=== PATIENT | female | born 1995 | race Caucasian/White ===

== ENCOUNTER 2016-10-18 11:25 | Emergency (ER) | payer OTHER ==
[~2016-10-18] VITALS: Ht 175.3 cm; Wt 82.0 kg
[2016-10-18 11:45] VITALS: TEMP 36.9; Ht 175.3 cm; Wt 82.0 kg
--- NOTE | 2016-10-18 13:03 | DIAGNOSTIC IMAGING REPORT ---
LUMBAR SPINE 5 VIEWS CLINICAL HISTORY: Low back pain. Sciatica. FINDINGS: 5 views of the lumbar spine are obtained. No prior studies are available for comparison at the time of dictation. The skeletal structures are well mineralized. There is no radiographic evidence of fracture or malalignment. Vertebral body height and alignment are maintained. The transverse and spinous processes are intact. There is no evidence of spondylolysis. The intervertebral disc spaces are well-maintained. The visualized bony pelvis appears intact. There is a nonobstructed abdominal bowel gas pattern. An intrauterine device is noted in the pelvis. IMPRESSION: Unremarkable radiographic evaluation of the lumbosacral spine. Electronically signed by: Mateo Witt M.D. 10/18/2016 12:42 PM Dictated Date/Time: 10/18/2016 12:41 PM
[2016-10-18] MEDS ORDERED: TRAM-10 PO (13:32)
[2016-10-18] MEDS ORDERED: CYCL10TA6 PO (13:32)
[2016-10-18 13:43] VITALS: BP 147/89; PULSE 61; O2SAT 98
--- NOTE | 2016-10-18 15:11 | EMERGENCY ROOM VISIT NOTE ---
History First contact with patient: 12:02 Chief Complaint: BACK PAIN Stated Complaint: BACK LOCKED UP/LOTS OF PAIN IN LWR BACK History of Present Illness The patient is a 20 year old female who presents to the Emergency Room with complaints of lower back pain. 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 The patient has had persistent pain since that time. The patient denies any twisting motion when she bent over. The patient reports that she has had chronic lower back pain since earlier in the summer. The patient was at a summer camp in [place] when she initially developed the pain. She denies any history of trauma at that time. The patient reports that a prostate 3 weeks after her initial injury is when she started to notice more frequent pain that would radiate into the left lateral thigh region. The pain never radiated below the left knee. The patient has not noticed any lower extremity weakness, foot drop, saddle anesthesias or bladder/bowel difficulties/incontinence. The patient did seek evaluation at an urgent care center in [place], it is had no further follow-up for her back pain. The patient reports that she did take some ibuprofen this morning that helped with the pain, and currently rates her discomfort a 5 out of 10 on my exam. She rated her pain a 10 out of 10 in triage. Review of Systems 10 system review was performed and was negative except for pertinent positives and negatives as indicated in history of present illness Past Medical/Surgical History Medical Problems: (1) Migraines Surgical Problems: (1) No history of previous surgery Family History No significant family history Social History Smoking Status: Never Smoker Alcohol Use: none Marital Status: single Housing Status: lives with roommate Occupation Status: [employer] Current/Historical Medications Scheduled PRN Cyclobenzaprine Hcl (Flexeril), 10 MG PO TID PRN for spasm Tramadol (Ultram), 1 TAB PO Q4H PRN for Pain Physical Exam Vital Signs Date Time Temp Pulse Resp B/P (MAP) Pulse Ox O2 Delivery O2 Flow Rate FiO2 10/18/16 13:43 61 147/89 98 10/18/16 11:45 36.9 98 16 145/85 99 Physical Exam CONSTITUTIONAL: Healthy and well nourished. Alert and oriented X 3 with positive affect. Patient appears in mild discomfort on my exam. HEENT: Normocephalic, atraumatic. Pupils equal, round and reactive. NECK: Full active range of motion without discomfort. GASTROINTESTINAL: Bowel sounds present in all quadrants. Soft and nontender to palpation. Negative CVA tenderness. MUSCULOSKELETAL: Examination shows mild tenderness to palpation through the left SI joint and sciatic notch. Negative logroll. Negative straight leg raise. No lateral pelvic or thigh tenderness to palpation. Pedal pulses are intact. Ankle plantar/dorsiflexion strength is 5 out of 5 and symmetric bilaterally. INTEGUMENTARY: No rash or other significant dermatologic conditions noted. NEUROLOGIC: Lower extremities are sensory intact with deep tendon reflexes 2+ and symmetric bilaterally. Medical Decision & Procedures ER Provider Diagnostic Interpretation: My interpretation of lumbar spine x-rays does not show any acute fractures, spondylolisthesis, subluxations or lordotic reversal. Radiologist report is as follows: LUMBAR SPINE 5 VIEWS CLINICAL HISTORY: Low back pain. Sciatica. FINDINGS: 5 views of the lumbar spine are obtained. No prior studies are available for comparison at the time of dictation. The skeletal structures are well mineralized. There is no radiographic evidence of fracture or malalignment. Vertebral body height and alignment are maintained. The transverse and spinous processes are intact. There is no evidence of spondylolysis. The intervertebral disc spaces are well-maintained. The visualized bony pelvis appears intact. There is a nonobstructed abdominal bowel gas pattern. An intrauterine device is noted in the pelvis. IMPRESSION: Unremarkable radiographic evaluation of the lumbosacral spine. ED Course Patient history and physical exam were performed. Nurse's notes were reviewed. Vital signs were reviewed and normal. The patient refused any analgesics on initial exam. X-rays of the lumbar spine were normal. At this point, it was suggested that the patient follow up with [facility] or [facility] for further reevaluation. The patient was provided prescriptions for Flexeril and Ultram, with instructions on when to use each medication. She was encouraged to alternate ibuprofen and Tylenol for baseline pain relief. She was also given specific instructions for symptoms to watch for and immediate return to the emergency department. The patient was happy with plan of care, voice understanding of all discharge instructions, and rated her pain a 5 out of 10 at the time of discharge. Medical Decision I suspect the patient has mild left lumbar radiculitis. History and clinical exam findings are not consistent with an emergent compressive neuropathy such as conus medullaris or cauda equina syndrome. He does not have any evidence for muscular spasm on exam, but certainly muscle rigidity could also be playing into her symptoms. I do not feel that MRI studies are warranted. Given that the patient has had this discomfort for the past 4 months, she may benefit from physical therapy. I do not feel that corticosteroid treatment is indicated at this time. [facility] Drug Monitoring Program Search Results: patient reviewed within database, no issues identified Medication Reconcilliation Current Medication List: was personally reviewed by me Blood Pressure Screening Patient's blood pressure: Normal blood pressure Impression Primary Impression: Low back pain with sciatica Departure Information Prescriptions Tramadol (Ultram) 50 Mg Tab 1 TAB PO Q4H Y for Pain, #15 TAB For Initial Treatment Prov: Hardik Ibanez PA 10/18/16 Cyclobenzaprine Hcl (FLEXERIL) 10 Mg Tab 10 MG PO TID Y for spasm, #15 TAB Prov: Hardik Ibanez PA 10/18/16 Referrals No Doctor, Assigned (PCP) Patient Instructions My [facility]
== END 2016-10-18 13:45 | disposition home or self-care (01) ==
LOC: C.EDB 11:27 → C.EDD 13:45
DX: M54.42 Lumbago with sciatica, left side (principal)

== ENCOUNTER → 2017-01-25 | Outpatient (CLI) | payer OTHER ==
[~2017-01-25] MED LIST: TRAM-10 PO
--- NOTE | 2017-01-25 16:05 | DIAGNOSTIC IMAGING REPORT ---
LUMBAR SPINE MRI HISTORY: LOW BACK PAIN TECHNIQUE: Multiplanar multisequence MRI of the lumbar spine was performed without the use of contrast. COMPARISON: Lumbar spine 10/18/2016. FINDINGS: For the purpose of the report the L5-S1 disc space will be located on axial image 27 of 30. No fracture or subluxation. Mild disc space narrowing at L3-L4. The contrast terminates at the L2 level. The visualized paraspinal soft tissues are unremarkable. Mild facet degenerative changes at L4-L5 and L5-S1. L1-L2: No significant central canal or neural foraminal narrowing. L2-L3: No significant central canal or neural foraminal narrowing. L3-L4: There is a left paracentral focal disc protrusion which demonstrates inferior subligamentous migration. This abuts but does not displace the transiting left L4 nerve root. No significant central canal or neural foraminal narrowing. L4-L5: No significant central canal or neural foraminal narrowing. L5-S1: There is a left paracentral/foraminal disc protrusion which abuts but does not significantly displace the transiting left S1 nerve root. No significant central canal or neural foraminal narrowing. IMPRESSION: Left paracentral focal disc protrusions at L3-L4 and L5-S1 which abut the transiting left sided nerve roots. Electronically signed by: Margarito Sousa M.D. 01/25/2017 4:04 PM Dictated Date/Time: 01/25/2017 3:48 PM
== END | disposition home or self-care (01) ==
LOC: C.MRI 14:46
PROVIDERS: ATTEND Internal Medicine
DX: M51.27 Other intervertebral disc displacement, lumbosacral region (principal)